=== PATIENT | female | born 1940 | race Caucasian/White ===

== ENCOUNTER → 2021-04-01 | Day surgery (SDC) | payer MEDICARE ==
[~2021-04-01] MED LIST: DESOWEN0.055 EX; DIPROLENE15 G1 EX; LISINOPRIL20 M1 OR; LORTAB 5/3255 MG PO; METROGEL1 % EX; SIMVASTATIN40 MG OR; SUB; VICODIN1 TAB PO; [UNRECOGNIZED DRUG - OTHER]; [UNRECOGNIZED DRUG - OTHER] PO
== END ==
LOC: ENDO 03-04 08:45 → ORM 03-04 08:45 → ENDO 08:43
PROVIDERS: ATTEND Surgery
DX: Z12.11 Encounter for screening for malignant neoplasm of colon (principal); N81.4 Uterovaginal prolapse, unspecified; Z86.010 Personal history of colon polyps; Z80.0 Family history of malignant neoplasm of digestive organs; Z53.09 Procedure and treatment not carried out because of other contraindication

== ENCOUNTER 2021-04-02 06:34 | Day surgery (SDC) | payer MEDICARE ==
[2021-04-02 09:16] VITALS: BP 148/72
== END 2021-04-02 09:15 | disposition home or self-care (01) ==
LOC: ORM 06:34
PROVIDERS: ATTEND Surgery
PROC: 0DJD8ZZ Inspection of Lower Intestinal Tract, Via Natural or Artificial Opening Endoscopic (ICD-10-PCS; principal; 2021-04-02)
DX: Z12.11 Encounter for screening for malignant neoplasm of colon (principal); K57.30 Diverticulosis of large intestine without perforation or abscess without bleeding; K64.8 Other hemorrhoids; N81.4 Uterovaginal prolapse, unspecified; Z86.010 Personal history of colon polyps; Z80.0 Family history of malignant neoplasm of digestive organs

== ENCOUNTER 2024-04-29 06:51 | Day surgery (SDC) | payer MEDICARE ==
[~2024-04-29] VITALS: Ht 167.6 cm; Wt 61.2 kg
[~2024-04-29 06:51] MED LIST changes: +TRAMADOL HYDROC50 M1 PO; +TYLENOL325 M2 PO
[2024-04-29] MEDS ORDERED: LACTATED RINGER'S 1,000 ML IV ONE (07:14)
[2024-04-29] MEDS ORDERED: ceFAZolin Sodium 2 GM/VIAL SDV ONE (07:14)
[2024-04-29] MEDS ORDERED: SODIUM CHLORIDE 0.9% 100 ML IV ONE (07:14)
[2024-04-29] MEDS ORDERED: SODIUM CHLORIDE 20 ML/VIAL SDV ONE (07:28)
[2024-04-29] MEDS ORDERED: BUPIVACAINE HCL 0.25% 25 MG/10 ML SDV ONE (07:29)
[2024-04-29] MEDS ORDERED: BUPIVACAINE 133 MG/10 ML VIAL IJ ONE (07:30)
[2024-04-29] MEDS ORDERED: PERCOCET 5/325M1 TAB PO (08:11)
[2024-04-29 10:21] VITALS: BP 149/71
[2024-04-29] MEDS ORDERED: PROPOFOL 200 MG/20 ML VIAL IV ONE (16:49)
[2024-04-29] MEDS ORDERED: SUCCINYLCHOLINE CHLORIDE 20 MG/ML 10ML VIAL IV ONE (16:49)
== END 2024-04-29 10:15 | disposition home or self-care (01) ==
LOC: ORM 06:51
PROVIDERS: ATTEND Surgery
PROC: 0YU50JZ Supplement Right Inguinal Region with Synthetic Substitute, Open Approach (ICD-10-PCS; principal; 2024-04-29)
DX: K40.90 Unilateral inguinal hernia, without obstruction or gangrene, not specified as recurrent (principal); I10 Essential (primary) hypertension; E78.00 Pure hypercholesterolemia, unspecified
CPT/HCPCS: J0666; J0690